=== PATIENT | female | born 2000 | race Caucasian/White ===

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

== ENCOUNTER 2022-01-02 10:04 | Outpatient (REF) | payer BC, SELFPAY ==
[2022-01-02 13:27] LABS: CT PCR NOT DETECTED (Not Detect.); NG PCR NOT DETECTED (Not Detect.)
== END 2022-01-02 10:05 | disposition home or self-care (01) ==
LOC: HO.LAB 10:04
PROVIDERS: PCP Pediatrics; Visit Provider Advanced Practice Midwife
DX: Z01.419 Encounter for gynecological examination (general) (routine) without abnormal findings (principal)
CPT/HCPCS: 87491; 87591

== ENCOUNTER 2023-05-27 13:34 | Outpatient (REF) | payer BC, SELFPAY ==
[2023-05-28 02:06] LABS: CT PCR NOT DETECTED (Not Detect.); NG PCR NOT DETECTED (Not Detect.)
[2023-05-28 12:53] LABS: BV Int Neg Control Negative (Negative); BV Int Pos Control Positive (Positive)
== END 2023-05-27 13:35 | disposition home or self-care (01) ==
LOC: HO.LNP 13:34
PROVIDERS: PCP Pediatrics; Visit Provider Advanced Practice Midwife
DX: Z01.419 Encounter for gynecological examination (general) (routine) without abnormal findings (principal); Z20.2 Contact with and (suspected) exposure to infections with a predominantly sexual mode of transmission; Z79.899 Other long term (current) drug therapy
CPT/HCPCS: 0353U; 87480; 87510; 87660; 88142

== ENCOUNTER 2024-06-22 13:57 | Outpatient (REF) | payer BC, SELFPAY ==
[2024-06-23 07:01] LABS: CT PCR NOT DETECTED (Not Detect.); NG PCR NOT DETECTED (Not Detect.)
[2024-06-23 11:14] LABS: Bacterial Vaginosis PCR NEGATIVE (Negative); Candida Group PCR NOT DETECTED (Not Detect); Candida glab krusei PCR NOT DETECTED (Not Detect); Trichomonas vaginalis PCR NOT DETECTED (Not Detect)
== END 2024-06-22 13:58 | disposition home or self-care (01) ==
LOC: HO.LAB 13:57
PROVIDERS: PCP Pediatrics; Visit Provider Advanced Practice Midwife
DX: Z30.41 Encounter for surveillance of contraceptive pills (principal); N89.8 Other specified noninflammatory disorders of vagina; Z20.2 Contact with and (suspected) exposure to infections with a predominantly sexual mode of transmission
CPT/HCPCS: 0352U; 87491; 87591

== ENCOUNTER 2024-06-22 13:57 | Outpatient (AMB) | payer BC, SELFPAY ==
--- NOTE | 2024-06-22 14:04 | MHC.OFFVIS ---
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 She is not having any coding quality coordinator concerns she has questions about menstrual cycles and symptoms of ovulation. She tries to be very good about taking her pills and it is very random that she would forget a pill. She is with the same partner for 6 years and isn't worried about STDs but accepts testing during the coding quality coordinator exam. She graduated college in March and has a remote job in [place]. She likes walking for exercise. She does not have an adult see yet on her list of things to do to find 1. She has been on pills for about 6 years now and likes them and has no problems with them whatsoever. She wants to continue on them. 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 [employer] Sexual orientation: Straight/Heterosexual Gender identity: Female Female Reproductive History Menstrual Age of Menarche: 16 Duration of menses: 6-7 days Date of last menstrual period: 06/06/24 control method: pills Full term: 0 Date of last pap smear: 05/28/23 (negative) History of abnormal pap smear: No Physical Exam Vital Signs: Last Vital Signs BP 100/60 06/22/24 14:20 BMI result Body Mass Index 21.4 Const General: healthy appearing, comfortable, no acute distress, well developed and alert Nutritional Appearance: average body habitus Orientation/consciousness: patient oriented x3 Limitations: no limitations HEENT Head: Yes normocephalic Neck Neck: Yes normal visual inspection Chest Chest palpation & inspection: normal inspection of the chest Breast/axilla inspection: normal inspection of the breasts and normal inspection of the axillae Breast/axilla palpation: normal palpation of the breasts and normal palpation of the axillae Resp Effort & Inspection: normal respiratory effort GI Inspection: Yes normal to inspection, No Abdominal wall edema and No distended Palpation (GI): Soft to palpation and nontender Other: External exam within normal limits vagina is pink and moist cervix nulliparous pink moist smooth with very normal appearing clear/white mucus uterus is small midposition mobile nontender adnexa mobile nontender not enlarged. Good tone with Kegel. General: Yes bladder normal to palpation External Female Exam: normal external appearance and normal appearance of the urethra Speculum Exam - Vagina: normal appearance of the vagina, normal palpation and normal vaginal discharge Speculum Exam - Cervix: normal appearance of the cervix, normal palpation and nontender Bimanual exam- vagina & uterus: normal bimanual exam, normal palpation, uterine size normal, bladder normal to palpation, consistency normal, normal palpation, uterine mobility normal, uterine shape normal, No Cervical tenderness present, non-tender and no cervical motion tenderness Bimanual Exam- Adnexa, other: normal adnexae, no masses, normal and No adnexal tenderness Neuro General: patient oriented x3 Results Reviewed Results Reviewed: Name: Deanne Lau Age/Sex: 23/F Attending: Alie Hughes CNM : 2000 Submitted by: Alie Hughes CNM Copies to: MARY TRAORE MD MR #: [id number] Status: DEP REF Collected: 05/27/23 Location: [facility] Received: 05/28/23 Interpretation Satisfactory for evaluation. No endocervical cells seen. Negative for intraepithelial lesion or malignancy. Obscuring inflammation. Clinical Information LMP: 05/08/23 Previous PAP test: Unknown date/findings Material Received ThinPrep-Cervical Copies To Alie Hughes [address] [place] [address] MARY TRAORE MD [address] [place] [address]. TIANA IVAN [phone] Electronically Signed By: Crista Roberto 06/13/23 7938 The Pap Test is a screening procedure with the inherent possibility of both false negative and false positive results. Results should be interpreted in the context of historic and current clinical findings. Reliability of the Pap Test is enhanced by performing the test on a regular repetitive basis. Patient: Deanne Lau Age/Sex: 23/F MR#: [id number] Page 1 of 1 Assessment & Plan Assessment & Plan (1) Cervical cancer screening: Comment: 05/27/2023 Pap is negative. Code(s): Z12.4 - Encounter for screening for malignant neoplasm of cervix Category: Medical (2) Surveillance for control, oral contraceptives: Code(s): Z30.41 - Encounter for surveillance of contraceptive pills Category: Medical (3) Encounter for annual routine gynecological examination: Code(s): Z01.419 - Encounter for gynecological examination (general) (routine) without abnormal findings Category: Medical (4) control counseling: Code(s): Z30.09 - Encounter for other general counseling and advice on contraception Category: Medical (5) Routine screening for STI (sexually transmitted infection): Code(s): Z11.3 - Encounter for screening for infections with a predominantly sexual mode of transmission Category: Medical Plan -----Discussed in this visit the following: healthy balanced diet, regular and consistent exercise, getting recommended health screens, doing the best she can for her particular health concerns, kegel exercises, pap smear screening and followup recommendations, mammography screening and SBE, normal changes in cycles in her life stage--- . Reviewed the control pills and how other hormonal methods of control affect the cycle by manipulating the hormonal changes throughout the cycle and therefore the physiologic effects on her entire body including breasts uterus cervix ovaries cervical discharge libido breast changes etc. discussed that if she ever does miss a pill it would be mccall to ask herself whether not she was on time with her pills before she had sex and if any doubt make herself use condoms as a safe guard for the next 2 weeks. Discussed that if she ever decided to stop the pills to see what her normal cycles were like when she did not need control then to stop them at the end of the pill pack and observe for the changes that would discussed and described and midcycle ovulation and what that would feel and appear like. Discussed that if she was ever planning a that she could take a month to allow the lining of the uterus to buildup of little bit more but it is not absolutely necessary. She is on the portal. patient to check with front sight attacher about PCC options. She did not feel she needed blood work for STI testing. RTC 1 year. Medications: Refilled desog-e.estradiol/e.estradiol 0.15-0.02 mgx21 /0.01 mg x 5 (Volnea (28)) 1 tab PO DAILY 84 days 84 tabs 4RF Coding Level of Care Code Est Pt Prev Care 18-39y(80154) Diagnoses Cervical cancer screening Z12.4 Surveillance for control, oral contraceptives Z30.41 Encounter for annual routine gynecological examination Z01.419 control counseling Z30.09 Routine screening for STI (sexually transmitted infection) Z11.3
[2024-06-22 14:20] VITALS: BP 100/60; BMI 21.4
== END 2024-06-22 15:22 | disposition home or self-care (01) ==
PROVIDERS: PCP Pediatrics; Visit Provider Advanced Practice Midwife
DX: Z12.4 Encounter for screening for malignant neoplasm of cervix (principal); Z30.41 Encounter for surveillance of contraceptive pills; Z01.419 Encounter for gynecological examination (general) (routine) without abnormal findings; Z30.09 Encounter for other general counseling and advice on contraception; Z11.3 Encounter for screening for infections with a predominantly sexual mode of transmission
CPT/HCPCS: 99395